=== PATIENT | male | born 1980 ===

== ENCOUNTER 2025-06-22 13:25 | Inpatient (IN) | payer BC ==
[2025-06-22 14:02] LABS: BASOPHILS PERCENT AUTO 0.5 % (0.0-1.0); EOSINOPHILS PERCENT AUTO 0.0 % (1.0-3.0); LYMPHOCYTES PERCENT AUTO 6.7 % (20.5-50.1); MONOCYTES PERCENT AUTO 4.7 % (2-8); NEUTROPHILS PERCENT AUTO 88.1 % (42.2-75.2); PLATELET COUNT,PLT 161 10^3/uL (150-450); RED BLOOD CELL COUNT 4.53 10^6/uL (4.6-6.2); WHITE BLOOD CELL COUNT,WBC 8.5 10^3/uL (5.0-10.0)
[2025-06-22] MEDS: Lactated Ringers 2,000 ML IV SCH (14:07)
[2025-06-22 14:23] LABS: ALANINE AMINOTRANSFERASE,ALT 82.0 U/L (16-63); ASPARTATE AMNIOTRANSFERASE,AST 86.0 U/L (15-37); BILIRUBIN TOTAL 0.7 mg/dL (0.2-1.0); BLOOD UREA NITROGEN,BUN 19.0 mg/dL (7-18); CARBON DIOXIDE,CO2 25.0 mmol/L (21-32); CHLORIDE,CL 96.0 mmol/L (98-107); CREATININE 1.25 mg/dL (0.70-1.30); EST CRCL DRUG DOSING (CG) 85.23 mL/min; GLUCOSE RANDOM 358.0 mg/dL (70-99); POTASSIUM,K 4.2 mmol/L (3.5-5.1); PROTEIN TOTAL,TP 7.7 g/dL (6.4-8.2); SODIUM,NA 130.0 mmol/L (136-145)
[2025-06-22 14:25] LABS: A/G RATIO 0.75; ESTIMATED GFR 73.0 mL/min (>=60); LACTIC ACID 1.6 mmol/L (0.4-2.0)
[2025-06-22] MEDS: Ketorolac 30 MG/ML SDV IVPUSH ONE (14:36)
[2025-06-22] MEDS ORDERED: 50% Dextrose in Water 50 ML Syringe IVPUSH PRN ×2 (15:24→15:26)
[2025-06-22] MEDS: Lactated Ringers 1,000 ML IV ONE (16:39)
[2025-06-22] MEDS: Heparin Sodium 5,000 Units/ML Vial SUBCUT SCH (21:52)
[2025-06-22] MEDS: Insulin Glarg,Human.Rec.Analog 100 Unit/ML 10 ML Vial SUBCUT SCH (21:52)
[2025-06-23 06:24] LABS: APPEARANCE,URINE CLOUDY (CLEAR); GLUCOSE,URINE 500 (NEGATIVE); OCCULT BLOOD,URINE MODERATE (NEGATIVE)
[2025-06-23 06:28] LABS: BASOPHILS PERCENT AUTO 0.6 % (0.0-1.0); EOSINOPHILS PERCENT AUTO 0.9 % (1.0-3.0); LYMPHOCYTES PERCENT AUTO 13.3 % (20.5-50.1); MONOCYTES PERCENT AUTO 4.8 % (2-8); NEUTROPHILS PERCENT AUTO 80.4 % (42.2-75.2); PLATELET COUNT,PLT 146 10^3/uL (150-450); RED BLOOD CELL COUNT 4.24 10^6/uL (4.6-6.2); WHITE BLOOD CELL COUNT,WBC 5.4 10^3/uL (5.0-10.0)
[2025-06-23 06:39] LABS: EPITHELIAL CELLS,URINE MODERATE /HPF (NOT SEEN)
[2025-06-23 06:56] LABS: BLOOD UREA NITROGEN,BUN 14.0 mg/dL (7-18); CARBON DIOXIDE,CO2 24.0 mmol/L (21-32); CHLORIDE,CL 100.0 mmol/L (98-107); CREATININE 0.88 mg/dL (0.70-1.30); EST CRCL DRUG DOSING (CG) 121.06 mL/min; GLUCOSE RANDOM 221.0 mg/dL (70-99); PHOSPHORUS 1.6 mg/dL (2.6-4.7); POTASSIUM,K 3.9 mmol/L (3.5-5.1); SODIUM,NA 134.0 mmol/L (136-145)
[2025-06-23 06:57] LABS: ESTIMATED GFR 109.0 mL/min (>=60)
[2025-06-23] MEDS ORDERED: 50% Dextrose in Water 50 ML Syringe IVPUSH PRN ×2 (07:40→14:27)
[2025-06-23] MEDS: Albuterol 0.021% 0.63 MG/3 ML Neb Soln NEB ONE (07:55)
[2025-06-23] MEDS: Insulin Regular, Human 100 Units/ML 10 ML Vial IV ONE ×2 (08:24→14:43)
[2025-06-23] MEDS: Potassium Chloride 10 MEQ Tab.ER PO SCH (08:31)
[2025-06-23] MEDS: glipiZIDE 5 MG Tab.ER PO SCH (08:32)
[2025-06-23] MEDS: Phosphorus #1 250 MG Tab PO SCH (08:32)
[2025-06-23] MEDS ORDERED: VARENICLINE TARTRATE 1 MG PO SCH (09:00)
[2025-06-23] MEDS: Insulin Glarg,Human.Rec.Analog 100 Unit/ML 10 ML Vial SUBCUT SCH (20:54)
[2025-06-24 06:56] LABS: BASOPHILS PERCENT AUTO 0.5 % (0.0-1.0); EOSINOPHILS PERCENT AUTO 2.0 % (1.0-3.0); LYMPHOCYTES PERCENT AUTO 21.2 % (20.5-50.1); MONOCYTES PERCENT AUTO 7.6 % (2-8); NEUTROPHILS PERCENT AUTO 68.7 % (42.2-75.2); PLATELET COUNT,PLT 139 10^3/uL (150-450); RED BLOOD CELL COUNT 3.95 10^6/uL (4.6-6.2); WHITE BLOOD CELL COUNT,WBC 6.5 10^3/uL (5.0-10.0)
[2025-06-24 07:39] LABS: BLOOD UREA NITROGEN,BUN 11.0 mg/dL (7-18); CARBON DIOXIDE,CO2 27.0 mmol/L (21-32); CREATININE 0.78 mg/dL (0.70-1.30); EST CRCL DRUG DOSING (CG) 136.58 mL/min; PHOSPHORUS 2.1 mg/dL (2.6-4.7); SODIUM,NA 132.0 mmol/L (136-145)
[2025-06-24 08:13] LABS: CHLORIDE,CL 90.0 mmol/L (98-107); GLUCOSE RANDOM 227.0 mg/dL (70-99); POTASSIUM,K 4.0 mmol/L (3.5-5.1)
[2025-06-24 08:16] LABS: ESTIMATED GFR 113.0 mL/min (>=60)
[2025-06-24] MEDS: Clindamycin in 0.9 % Sod Chlor 300 MG in Premix Bag 1 BAG IV SCH (11:34)
[2025-06-24] MEDS: Insulin Isophane NPH, Human 100 Units/ML 10 ML Vial SUBCUT ONE (17:24)
[2025-06-24] MEDS: Insulin Glarg,Human.Rec.Analog 100 Unit/ML 10 ML Vial SUBCUT SCH (21:59)
[2025-06-25] MEDS: Sodium Chloride 0.9% 10 ML Syringe FLUSH PRN (00:23)
[2025-06-25 08:19] LABS: PLATELET COUNT,PLT 164 10^3/uL (150-450); RED BLOOD CELL COUNT 3.71 10^6/uL (4.6-6.2); WHITE BLOOD CELL COUNT,WBC 9.6 10^3/uL (5.0-10.0)
[2025-06-25 08:21] LABS: BASOPHILS PERCENT AUTO 0.4 % (0.0-1.0); EOSINOPHILS PERCENT AUTO 2.4 % (1.0-3.0); LYMPHOCYTES PERCENT AUTO 16.2 % (20.5-50.1); MONOCYTES PERCENT AUTO 9.1 % (2-8); NEUTROPHILS PERCENT AUTO 71.9 % (42.2-75.2)
[2025-06-25 08:26] LABS: BLOOD UREA NITROGEN,BUN 10.0 mg/dL (7-18); CARBON DIOXIDE,CO2 25.0 mmol/L (21-32); CHLORIDE,CL 98.0 mmol/L (98-107); CREATININE 0.76 mg/dL (0.70-1.30); EST CRCL DRUG DOSING (CG) 140.18 mL/min; PHOSPHORUS 2.3 mg/dL (2.6-4.7); POTASSIUM,K 3.7 mmol/L (3.5-5.1); SODIUM,NA 134.0 mmol/L (136-145)
[2025-06-25 08:29] LABS: ESTIMATED GFR 114.0 mL/min (>=60); GLUCOSE RANDOM 222.0 mg/dL (70-99)
[2025-06-25 09:00] LABS: BAND PERCENT MAN 1 %; LYMPHOCYTES PERCENT MAN 19 % (20-50); METAMYELOCYTE PERCENT MAN 2; MONOCYTES PERCENT MAN 3 % (2-8); SEG NEUTROPHILS PERCENT MAN 75 % (42-75)
== END 2025-06-25 13:25 | disposition home or self-care (01) | DRG 720 ==
LOC: DL.ED 13:25 → DL.MS 14:50
PROVIDERS: ADMIT Internal Medicine; ATTEND Internal Medicine
DX: A41.9 Sepsis, unspecified organism (principal); L03.116 Cellulitis of left lower limb; N39.0 Urinary tract infection, site not specified; E83.42 Hypomagnesemia; E87.6 Hypokalemia; I10 Essential (primary) hypertension; F41.9 Anxiety disorder, unspecified; E66.9 Obesity, unspecified; F17.200 Nicotine dependence, unspecified, uncomplicated; E11.65 Type 2 diabetes mellitus with hyperglycemia; G47.33 Obstructive sleep apnea (adult) (pediatric); E83.39 Other disorders of phosphorus metabolism; Z91.048 Other nonmedicinal substance allergy status; Z68.42 Body mass index [BMI] 45.0-49.9, adult
CPT/HCPCS: 36415; 71045; 80048; 80053; 80202; 81001; 82947; 83036; 83605; 83735; 84100; 84145; 85025; 85651; 87040; 87086; 93971; 94640; 96365; 96375; 99223; 99232; 99239; 99284; 99284-25; A9270-GY; J0696; J0737; J1644; J1815-GY; J1885; J3373; J3375; J7030; J7060; J7120; J7613